=== PATIENT | male | born 1955 | race African-American/Black ===

== ENCOUNTER 2018-12-01 14:01 | Inpatient (IN) | payer BC ==
[~2018-12-01] VITALS: Ht 162.6 cm; Wt 60.3 kg
[2018-12-01 14:01] VITALS: BP 208/135
--- NOTE | 2018-12-01 14:33 | EKG ---
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1955 Requested By: Luisa Matthews Order Number: [id number] MD: Lavon Gil Measurements Intervals Wade Rate: 119 P: 50 NJ: 163 QRS: -29 QRSD: 95 T: 132 QT: 333 QTc: 469 Interpretive Statements Sinus tachycardia LVH with secondary repolarization abnormality Poor R wave progression No previous ECG available for comparison Electronically Signed On 12-01-2018 14:33:15 CDT by Lavon Gil [email or web address] ��������������������������������������������� <ELECTRONICALLY SIGNED> ���������������������������������������� By: Lavon Gil MD, [facility] ��������������������������������������������� 12/01/18 1433 1407 1407 Lavon Gil MD, FACC /EPI
[2018-12-01] MEDS ORDERED: BAYER CHEWABLE81 MG PO (15:24)
[2018-12-01 15:41] LABS: ABSOLUTE NEUTROPHILS 15.3 thou/uL (1.4-8.2); BASOPHILS 0.4 % (0.0-2.0); EOSINOPHILS 0.2 % (0.0-3.0); HEMATOCRIT 42.9 % (42.0-52.0); HEMOGLOBIN 14.7 gm/dL (14.0-18.0); LYMPHOCYTES 5.4 % (24.0-44.0); MCH 32.8 pg (26.0-34.0); MCHC 34.2 g/dL (28.0-37.0); MCV 95.7 fL (80.0-100.0); MONOCYTES 9.1 % (1.0-8.0); PLATELET COUNT 153 thou/uL (150-400); POLYS 84.9 % (36.0-66.0); RBC 4.48 mil/uL (4.50-6.00); RDW 13.5 % (10.5-14.5)
[2018-12-01 15:49] LABS: CALCIUM 8.7 mg/dL (8.5-10.1); CREATININE 1.5 mg/dL (0.7-1.3); POTASSIUM 3.7 mmol/L (3.5-5.1)
[2018-12-01 15:58] LABS: TROPONIN-I 0.17 ng/mL (<0.06)
[2018-12-01 22:02] VITALS: BP 133/95
[2018-12-01 22:48] VITALS: BP 209/87
[2018-12-02] VITALS (7 sets, daily range): BP systolic 123–185; BP diastolic 80–135
[2018-12-02 05:18] LABS: HEMATOCRIT 44.4 % (42.0-52.0); HEMOGLOBIN 15.5 gm/dL (14.0-18.0); MCH 33.7 pg (26.0-34.0); MCV 96.5 fL (80.0-100.0); RBC 4.6 mil/uL (4.50-6.00); RDW 13.7 % (10.5-14.5); WBC 17.4 thou/uL (4.0-11.0)
[2018-12-02 05:38] LABS: CALCIUM 8.8 mg/dL (8.5-10.1); CREATININE 1.6 mg/dL (0.7-1.3); TROPONIN-I 0.22 ng/mL (<0.06)
--- NOTE | 2018-12-02 08:14 | NUR ---
[facility]. [facility] STABLE. BP RUNS EXTREMELY HIGH. ON NITRO DRIP TO HELP WITH BP. COMPLAINS OF SOB WITH LAYING DOWN. LASIX GIVEN/VOIDING ADEQUATELY. ASSESSMENT CHGARTED. NITRO DRIP D/C'ED. CARDIOLOGY WORKING ON BP MEDS AND CHF. PULMONARY ON RESP DISTRESS/SOA. WILL CONTNUE TO MONITOR AND FOLLOW WITH POC
[2018-12-02 16:05] LABS: URINE BILIRUBIN NEGATIVE (Negative); URINE BLOOD NEGATIVE (Negative); URINE CLARITY CLEAR; URINE COLOR YELLOW; URINE GLUCOSE-RANDOM* NEGATIVE (Negative); URINE KETONES NEGATIVE (Negative); URINE LEUKOCYTES NEGATIVE (Negative); URINE NITRITE NEGATIVE (Negative); URINE PROTEIN (DIPSTICK) NEGATIVE (Negative); URINE UROBILINOGEN 0.2 E.U./dl (0.2-1.0)
[2018-12-02 16:19] LABS: PROT/CREAT RATIO 0.8; URINE CREATININE-RANDOM* 21.4 mg/dL; URINE PROTEIN-RANDOM* 17.2 mg/dL (<11.9)
--- NOTE | 2018-12-02 16:57 | NUR ---
ASSESSMENT CHARTED - MEDS PER MAR - GIVEN IV LASIX ORDERED WITH GOOD REPOSNSE. ACCUCHECKS CHARTED - ECHO COMPLETED THIS AM - LOW K+ REPLACED PER PROTOCOL - K+ NOW 3.9. PT UP AD KATHIE IN ROOM - DEION DIET AND FLUIDS. SEEN BY NEPHROLOGY TODAY ORDERED - URINE TO THE LAB ORDERED. NO CO'S AT THE PRESENT TIME.
--- NOTE | 2018-12-02 22:01 | 2DMMODE ---
[facility] [place] [address] 2 D/M-MODE ECHOCARDIOGRAM Name: GEOVANI VALENTINE Room #: 206-P ADM IN M.R.#: [id number] ������������� Admission: 12/01/18 ������������� Attend Phys: Mari Angeles MD Discharge: ��� ������������� ��� Date of : 59 Date of Service: 12/02/182200 �� Report #: [id number] �������� ��������������������������������������������[id number] THIS REPORT FOR: //name// APPROVED REPORT Study performed: 12/02/2018 08:16:41 EXAM: Comprehensive 2D, Doppler, and color-flow Echocardiogram Patient Location: Bedside Room #: 206 Status: on-call BSA: 1.64 BP: 185/135 mmHg Rhythm: NSR Other Information Study Quality: Good Indications CHF, HTN, elevated troponin, pulmonary edema, dyspnea Echo Enhancing Agent Indication: Endocardial border delineation Agent(s) / Amount(s) Used: Optison 2 cc 2D Dimensions RVDd: 31.43 mm IVSd: 17.24 (7-11mm) LVDd: 49.93 mm PWd: 18.80 (7-11mm) LVDs: 43.27 (25-40mm) Left Atrium: 39.64 (27-40mm) IVC: 19.00 mm Volumes Left Atrial Volume (Systole) Single Plane 4CH: 60.10 mL LA ESV Index: 48.00 mL/m2 Aortic Valve AoV Peak Marino.: 1.48 m/s AO Peak Gr.: 9.87 mmHg LVOT Max P.34 mmHg LVOT Max V: 1.16 m/s [facility] [address] [place] [address] 2 D/M-MODE ECHOCARDIOGRAM Name: GEOVANI VALENTINE Room #: 206-P [facility] IN .R.#: [id number] ������������� Admission: 12/01/18 ������������� Attend Phys: Mari Angeles MD Discharge: ��� ������������� ��� Date of : 59 Date of Service: 12/02/18 2201 �� Report #: [id number] �������� ��������������������������������������������[id number] Mitral Valve MV Peak Gr.: 4.97 mmHg MV Mean Gr.: 1.87 mmHg E/A Ratio: 2.0 MV Decel. Time: 110.85 ms MV E Max Marino.: 0.92 m/s MV A Marino.: 0.45 m/s MV Max Marino.: 1.11 m/s MV Mean Marino.: 0.61 m/s MV VTI: 248.05 mm Pulmonary Valve PV Peak Marino.: 0.64 m/s PV Peak Gr.: 1.62 mmHg Tricuspid Valve TR Peak Marino.: 2.91 m/s RAP Estimate: 5.00 mmHg TR Peak Gr.: 33.79 mmHg PA Pressure: 39.00 mmHg Left Ventricle The left ventricle is normal size. Global hypokinesis. Severe concentric left ventricular hypertrophy. Left ventricular ejection fraction is severely decreased. LVEF is 15-20%. This study is not technically sufficient to allow evaluation of the LV diastolic function. Right Ventricle Right ventricle is mildly dilated. The right ventricular systolic function is normal. Atria Left atrium is moderately dilated. Left atrial volume = 48 ml/m2. Right atrium is moderately dilated. Aortic Valve The Aortic valve is sclerotic. Moderate aortic regurgitation. There is no aortic valvular stenosis. Mitral Valve Mitral valve leaflets are mildly thickened. Trace mitral regurgitation. No evidence of mitral valve stenosis (mean gradient 1.8 mmHg). Tricuspid Valve The tricuspid valve appears grossly normal in structure. Unusual eccentric mild tricuspid regurgitation. Estimated PAP pressure of 39 mmHg. [facility] [address] [place] [address] 2 D/M-MODE ECHOCARDIOGRAM Name: GEOVANI VALENTINE Room #: [facility] IN .R.#: [id number] ������������� Admission: 12/01/18 ������������� Attend Phys: Mari Angeles MD Discharge: ��� ������������� ��� Date of : 59 Date of Service: 12/02/18 2201 �� Report #: [id number] �������� ��������������������������������������������[id number] Pulmonic Valve The pulmonary valve is normal in structure. Trace pulmonic regurgitation. Great Vessels The aortic root is normal in size. The ascending aorta is normal in size. IVC is normal in size and collapses >50% with inspiration. Pericardium There is no pericardial effusion. <Conclusion> The left ventricle is normal size. Severe concentric left ventricular hypertrophy. LVEF is 15-20%. Global hypokinesis. This study is not technically sufficient to allow evaluation of the LV diastolic function. Right ventricle is mildly dilated. Left atrium is moderately dilated. Left atrial volume = 48 ml/m2. Right atrium is moderately dilated. Moderate aortic regurgitation. Mitral valve leaflets are mildly thickened. Trace mitral regurgitation. Unusual eccentric mild tricuspid regurgitation. Estimated PAP pressure of 39 mmHg. The aortic root is normal in size. There is no pericardial effusion. ��������������������������������������������� <ELECTRONICALLY SIGNED> ���������������������������������������� By: Alberto Sanches MD, FACC ��������������������������������������������� 12/02/182200 00 00 Alberto Sanches MD, FACC /INF
[2018-12-03] VITALS (7 sets, daily range): BP systolic 129–180; BP diastolic 84–132
[2018-12-03 05:53] LABS: ALBUMIN 3.1 g/dL (3.4-5.0); CALCIUM 8.8 mg/dL (8.5-10.1); CREATININE 1.6 mg/dL (0.7-1.3); PHOSPHORUS 3.3 mg/dL (2.5-4.9); POTASSIUM 3.5 mmol/L (3.5-5.1)
--- NOTE | 2018-12-03 06:52 | NUR ---
[facility] 1900. PT STABLE. DENIES ANY LINN OR HEADACHES. BP STILL UNSTABLE. UP AD KATHIE. ASSESSMETN CHARTED. PROGRESSING MODERTELY TO PLAN OF CARE. PLAN IS TO CONTINUE WITH DIURETICS AND BP MEDS UNTIL STABILIZED. WILL CONTINUE TO MONITOR AND FOLLOW WITH POC
--- NOTE | 2018-12-03 08:12 | NUR ---
INSTRUCT PT TO LIMIT PO LIQUID INTAKE AND NEED FOR SCDS BILAT. WILL CONTINUE TO ASSESS.
[2018-12-03 09:28] LABS: CHOLESTEROL 195 mg/dL (<200); HDL CHOLESTEROL 52 mg/dL (>40); LDL CHOLESTEROL 121 mg/dL (<100); TC:HDL 3.8 Ratio (Not establshd); TRIGLYCERIDE 113 mg/dL (<150); VLDL 23 mg/dL (<40)
--- NOTE | 2018-12-03 11:24 | HC ---
[facility] [place] [address] CONSULTATION Name: GEOVANI VALENTINE Room #: 206-P ADM IN M.R.#: [id number] Admission: 12/01/18 ������������������ Attend Phys: Mari Angeles MD Discharge: ������������������ Date of : 59 Report #: [id number] THIS REPORT FOR: //name// CC: SKIP Angeles DATE OF SERVICE: 12/02/2018 NEPHROLOGY CONSULTATION REASON FOR CONSULTATION: Elevated creatinine level. HISTORY OF PRESENT ILLNESS: This is a 63-year-old male who presented to the Emergency Room with a couple of weeks history of increasing dyspnea, orthopnea, and a few episodes of PND. He has had very little medical care over the years. He says he went [place] years ago with essentially no medical care that made the better part of 35 years or more. He was seen at [facility] 2 years ago when he had an inguinal herniorrhaphy performed. At that time, he was diagnosed with hypertension. He was put on a combination of medications including lisinopril. The lisinopril was eventually stopped as he had an episode of angioedema. He was kept on other medications, but never really followed up. A year ago, he basically stopped all his medications and he has had no medications for the better part of the past year. On presentation to the Emergency Room last night, his blood pressure was 208/135. Heart rate was elevated in the 120s. He was afebrile. He denies chest pain or palpitations. He mainly has had the dyspnea, the orthopnea and the PND. He has not had much in the way of lower extremity edema. He also presented with some leukocytosis with a white count of 18 on presentation. With that he had 85 neutrophils, 5 lymphs, 9 monocytes. We are asked to see him for renal-related causes. On presentation, his creatinine level was 1.5. It is up to 1.6 today. His initial potassium was 3.7 and bicarbonate was 24. In talking to the patient, he knows of no prior renal-related problems. He has the hypertension. He is unaware of diabetes. No history of urinary tract infections, nephrolithiasis, hematuria, proteinuria. He has no urinary symptoms. Again, he has had no edema. He knows that he had blood work drawn and evaluation done a couple of years ago when he had his herniorrhaphy, but does not remember being told about anything at that time. Again, he has had very little in the way of medical care. MEDICATIONS PRIOR TO ADMISSION: Include aspirin 81 mg daily. This is the only medication that he takes. PAST MEDICAL HISTORY: Father in his 80s. He had hypertension and was on dialysis due to end-stage renal disease, just at the end of his life, but that was less than a year that he was on dialysis before he . Mother is [address] [address] CONSULTATION Name: GEOVANI VALENTINE Room #: 206-P [facility] IN M.R.#: [id number] Admission: 12/01/18 ������������������ Attend Phys: Mari Angeles MD Discharge: ������������������ Date of : 59 Report #: [id number] and also has some hypertension, but he is unaware of any renal disease in his mother. He is one of 7 siblings. One sister of cardiac complications within the past year. No other renal disease in the family of which he is aware. SOCIAL HISTORY: The patient is single, although there is a female partner who accompanies him here in the hospital. He has worked many different jobs over the years. He said he never received any medical care. REVIEW OF SYSTEMS: Has noticed increased fatigue. Denies fevers, chills or sweats. No nausea or vomiting. Has the orthopnea and PND as noted above. Reports no difficulty voiding urine. No nausea, vomiting, or change in bowel habits. No edema. No rashes or arthralgias. Unaware of other changes that he just does not feel his normal self. PHYSICAL EXAMINATION: GENERAL: A 63-year-old male, awake, alert, and conversant, no distress at this time. VITAL SIGNS: Most recent blood pressure 185/135, heart rate 78, temperature 97.8, oxygen saturation 95%. HEENT: Shows pupils are equal and reactive. Sclerae nonicteric. Oral mucosa is moist, no lesions. NECK: Supple without adenopathy, thyromegaly, JVD or bruit. BACK: Shows no CVA tenderness. CHEST: Fairly clear bilaterally. I hear no rales, rhonchi or wheezes. CARDIOVASCULAR: Heart has a regular rate and rhythm with occasional S4 gallop. No murmur. ABDOMEN: Has active bowel sounds, is soft and nontender. No organomegaly or masses are palpable. EXTREMITIES: Show no peripheral edema. He has 2+ peripheral pulses. LABORATORY DATA: I reviewed his chest x-ray which shows some diffuse interstitial markings. I reviewed his CT angio, which was done last night. There were no changes consistent with pulmonary emboli. He did have a few segmental areas of patchy infiltrates. LABORATORY DATA: From presentation, sodium 134, potassium 3.7, chloride 99, bicarbonate 24, BUN 26, creatinine 1.5. It is 1.6 this morning. Glucose is 126, calcium 8.7. Troponin is 0.17, which justin to 0.22. White count 18.0, hemoglobin 14.7, hematocrit 42.9, platelets 153,000. Differential is as noted above. No urinalysis available. ASSESSMENT: 1. Elevated creatinine. We do not have much to go on at this point. He has very minimal medical history, because of lack of going for medical care. I suspect he has actually had hypertension for a very long period of time and the [facility] [address] [place] [address] CONSULTATION Name: GEOVANI VALENTINE Room #: 206-P ADM IN ..#: [id number] Admission: 12/01/18 ������������������ Attend Phys: Mari Angeles MD Discharge: ������������������ Date of : 59 Report #: [id number] most likely scenario would be that of hypertensive nephrosclerosis causing chronic kidney disease. We certainly need to look for other causes as though. There is no urinalysis yet. We will review that. We will also check for proteinuria and quantify the amount. In the meantime, he needs a better blood pressure control. As that happens, I expect his creatinine level will rise somewhat. We need to get a renal ultrasound to assess renal size and anatomy. If we see any evidence of inflammation, increasing proteinuria, we will expand the evaluation to include looking for causes of gluomerolar disease. 2. Hypertension, poor control. He has been started on carvedilol, amlodipine, some IV furosemide and then when his potassium dropped this morning, some spironolactone. All of those are fine for now. I think long-term thiazide diuretic. We will do a good job and helping control his pressure because he obviously will need to be on long-term IV furosemide. Sodium restriction will be important. Again, we will see how he responds to initiating these medicines. 3. Congestive heart failure by symptoms. We will see what his echo shows. 4. Infiltrates with adenopathy on his CT scan of his chest. Workup to be started. PLAN: 1. Continue current antihypertensives. 2. Check urinalysis as well as urine protein creatinine ratio. 3. Renal ultrasound. 4. We will follow up on the results of his echocardiogram. 5. Repeat labs in the morning. 6. We will continue to work with him as we get more data back in directing this evaluation and treatment. ��������������������������������������������� <ELECTRONICALLY SIGNED> ���������������������������������������� By: Jeromy Mcgregor MD ��������������������������������������������� 12/03/18 1124 1353 2231 Jeromy Mcgregor MD /nt
--- NOTE | 2018-12-03 15:16 | EKG ---
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1955 Requested By: Luisa Matthews Order Number: [id number] MD: Lavon Gil Measurements Intervals [place] Rate: 115 P: 39 NH: 186 QRS: -36 QRSD: 90 T: 124 QT: 332 QTc: 460 Interpretive Statements Sinus tachycardia Atrial premature complex Left atrial enlargement LVH with secondary repolarization abnormality Anterior infarct, old Compared to ECG 12/01/2018 14:07:33 Atrial premature complex(es) now present Electronically Signed On 12-03-2018 15:15:49 CDT by Lavon Gil [email or web address] ��������������������������������������������� <ELECTRONICALLY SIGNED> ���������������������������������������� By: Lavon Gil MD, [facility] ��������������������������������������������� 12/03/18 1515 1616 1616 Lavon Gil MD, [facility] /EPI
--- NOTE | 2018-12-03 16:35 | HC ---
[facility] [place] [address] CONSULTATION Name: GEOVANI VALENTINE Room #: [facility] ADM IN M.R.#: [id number] Admission: 12/01/18 ������������������ Attend Phys: Mari Angeles MD Discharge: ������������������ Date of : 59 Report #: [id number] THIS REPORT FOR: //name// CC: [employer] Mari Angeles PULMONARY CONSULTATION REFERRING PHYSICIAN: Dr. Angeles. REASON FOR REFERRAL: Infiltrates. HISTORY OF PRESENT ILLNESS: The patient is a 63-year-old male who presents to the ED with progressive dyspnea, cough and chest pain. CT chest angiogram showed infiltrates. A pulmonary consultation was requested. For the past few weeks, the patient had noticed progressive dyspnea on exertion. For the past week, he has developed a nonproductive cough. He has also developed frequent nocturnal awakenings due to dyspnea. He also complained of left-sided chest pain for about a week or so. The patient states that he smoked cigars for about 20 years. He smokes less than 5 cigars per day. He has never been diagnosed with chronic lung disease. He has had hypertension for several years. Over a year ago, he stopped taking the antihypertensive medication due to leg cramps. About a year or so ago, he was also seen in the ER due to what sounds like marked perioral upper airway edema related to antihypertensive medication. In the ER, the patient's blood pressure was found to be markedly elevated at 208/135 mmHg. Chest x-ray was abnormal showing infiltrates bilaterally. CT chest angiogram was performed showing no evidence of pulmonary embolus. It did show areas of patchy interstitial and airspace infiltrates involving both upper lobes. There is some suggestion of Violeta B lines. Mild AP window adenopathy is noted. Mild bronchiectasis is also seen bilaterally. 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 He does not remember any particular respiratory symptoms while working as a painter ski edge. Otherwise, denies any night sweats, fever or chills. Denies any recent hemoptysis. Denies any recent weight loss. The patient denies any family history of bronchogenic carcinoma. [facility] [address] [place] [address] CONSULTATION Name: GEOVANI VALENTINE Room #: 206-[facility] IN .R.#: [id number] Admission: 12/01/18 ������������������ Attend Phys: Mari Angeles MD Discharge: ������������������ Date of : 59 Report #: [id number] PAST MEDICAL HISTORY: As mentioned above. Long history of hypertension, tobacco abuse primarily cigars. ALLERGIES: LISINOPRIL causing facial edema. HOME MEDICATIONS: Reviewed. He only takes aspirin. FAMILY HISTORY: Notable for hypertension, heart disease in her father. Mother from following complications associated with surgery. He has a sister that has a pacemaker placement. SOCIAL HISTORY: Born and raised in [place], [place]. He is . 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 He drinks socially. He smokes several cigarettes or cigars per day for the last 20 years. REVIEW OF SYSTEMS: As mentioned above, otherwise 10-point system review negative. PHYSICAL EXAMINATION: GENERAL: He is awake, alert, in no apparent distress. VITAL SIGNS: Temperature is 97.8 degrees Fahrenheit, pulse is 114, respiratory rate is 20, blood pressure was 180/135 mmHg, currently is 120/95 mmHg, saturation 94%. HEENT: Normocephalic, atraumatic. NECK: Supple, without any lymphadenopathy or thyromegaly. CHEST: Breath sounds are good with few scattered crackles in the upper lobes. No wheezes. CARDIOVASCULAR: Normal S1, S2. No murmurs or gallop. There is no JVD. There is no carotid bruit. Pulses are 2+/4+ bilaterally. ABDOMEN: Soft, nontender, no organomegaly or masses felt. GENITOURINARY: Deferred. RECTAL: Deferred. EXTREMITIES: There is no edema, cyanosis or clubbing. LABORATORY DATA: Chest x-ray, CT chest angiogram as mentioned above showing patchy bilateral interstitial and airspace infiltrates, mild bronchiectasis. Questionable mediastinal adenopathy involving the AP window. Electrolytes, creatinine is 1.5. Sodium 134, potassium 3.0, chloride 99, CO2 24, BUN is 26. WBC is 18,000, hemoglobin is 14.7, platelets are normal. Differential is unremarkable. Troponin 0.2. EKG shows sinus tachycardia, otherwise no ischemic changes, left ventricular hypertrophy is noted, old anterior infarct is noted. Echocardiogram performed earlier today reveals severe cardiomyopathy with ejection fraction approximately 20%, pulmonary artery pressure around 45. Full report pending. IMPRESSION: [facility] [address] [place] [address] CONSULTATION Name: GEOVANI VALENTINE Room #: 206-P ADM IN M.R.#: [id number] Admission: 12/01/18 ������������������ Attend Phys: Mari Angeles MD Discharge: ������������������ Date of : 59 Report #: [id number] 1. Bilateral patchy interstitial and ground glass infiltrates in this 63-year-old male. He was found to be in hypertensive emergency, echo shows severe cardiomyopathy. Although the infiltrates suggests possible infectious inflammatory process, given presentation and laboratory data, this may represent atypical pulmonary edema. As mentioned, he may have underlying interstitial process such as interstitial lung disease, infectious processe including atypical infection is felt to be less likely given absence of symptoms and given the absence of fever and productive cough. 2. Hypertensive urgency. 3. Severe cardiomyopathy, ejection fraction 20%. 4. Elevated pulmonary artery systolic pressure around 45 mmHg. 5. Elevated troponin. 6. Acute on chronic heart failure, systolic. 7. Acute kidney injury/chronic kidney disease, likely related to poorly controlled hypertension. 8. Leukocytosis, may be reactive, we will follow closely. Antibiotic has been started. 9. Tobacco abuse. RECOMMENDATION: As mentioned above, agree with current plans including diuresis and further cardiac evaluation. I would recommend followup imaging studies regarding infiltrates following treatment for heart failure. If infiltrates persist, I will proceed with further workup including diagnostic bronchoscopy, bronchial lavage, possible transbronchial biopsies. Strongly recommend tobacco cessation. The patient will benefit from outpatient followup with pulmonary functions. Thank you for this consultation. ��������������������������������������������� <ELECTRONICALLY SIGNED> ���������������������������������������� By: Thomas Comer MD ��������������������������������������������� 12/03/18 1635 1412 [id number] Thomas Comer MD /nt
--- NOTE | 2018-12-03 17:26 | NUR ---
PT STAYNG WITHIN FLUID RESTRICTION. PT UP TO SHOWER THIS SHIFT.
[2018-12-04 04:02] LABS: ALBUMIN 2.9 g/dL (3.4-5.0); CALCIUM 8.8 mg/dL (8.5-10.1); CREATININE 1.7 mg/dL (0.7-1.3); PHOSPHORUS 4.2 mg/dL (2.5-4.9); POTASSIUM 3.6 mmol/L (3.5-5.1)
[2018-12-04 04:18] LABS: HEMATOCRIT 43.9 % (42.0-52.0); HEMOGLOBIN 15.1 gm/dL (14.0-18.0); MCH 33.3 pg (26.0-34.0); MCHC 34.5 g/dL (28.0-37.0); MCV 96.6 fL (80.0-100.0); RBC 4.54 mil/uL (4.50-6.00); RDW 13.4 % (10.5-14.5)
[2018-12-04 04:30] VITALS: BP 148/105
--- NOTE | 2018-12-04 05:28 | NUR ---
PT RESTING IN BED, APPEARED TO BE SLEEPING WHEN PT HAD 23 BEAT VTACH AROUND 0517. I WOKE PT UP AND HE SAID HE FELT FINE, NO C/O OF CP. PT REMAINS ON RA. HAS BEEN NPO SINCE MIDNIGHT FOR HEART CATH TODAY. REMAINS SR/ST ON MONITOR.
[2018-12-04 08:21] VITALS: BP 154/112
[2018-12-04 12:10] LABS: KAPPA FREE LIGHT CHAINS 32.3 mg/L (3.3-19.4); KAPPA/LAMBDA RATIO 1.19 (0.26-1.65); LAMBDA FREE LIGHT CHAINS 27.1 mg/L (5.7-26.3)
--- NOTE | 2018-12-04 16:32 | NUR ---
ASSESSMENT CHARTED - MEDS PER JUN - DEION DIET AND FLUIDS. NO CO'S OF PAIN OF NAUSEA. 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 POST CATH VSS AND GROIN SITE STABLE - PT NOW UP IN ROOM WITH STABLE GROIN SITE - NO BLEEDING HEAMATOMMA. IV FLUIDS CONTINE TO RUN RODERED MAY BE D/C'S AT 1730. FRIEND AT THE [facility]. NO CO'S AT THE PRESENT TIME.
[2018-12-04 17:10] LABS: ANA INTERPRETATION Negative (())
--- NOTE | 2018-12-04 17:17 | CATHLAB ---
[facility] [address] [place] [address] INVASIVE PROCEDURE REPORT Name: GEOVANI VALENTINE Room #: 206-P ADM IN M.R.#: [id number] ������������� Admission: 12/01/18 ������������� Attend Phys: Mari Angeles MD Discharge: ��� ������������� ��� Date of : 59 Date of Service: 12/04/18 1717 �� Report #: [id number] �������� ��������������������������������������������[id number] THIS REPORT FOR: //name// APPROVED REPORT Study performed: 12/04/2018 07:55:16 Patient Details Patient Status: In-Patient Room #: The patient is a 63 year-old male Event Personnel Alberto Sanches Heel Attacher, Jean Paul Cummings RN RN, Ariane Richards Monitor, Vipul Costa RTR Scrub, Edward Fitch RTR Scrub Procedures Performed Art Access - R femoral artery* Long Access - R femoral vein [id number] Initial Mod Sed Same Phys/QHP Gr5y [id number] Right and Left Heart Cath w/or w/o Coronarie [id number] [facility] Aortogram Abdominal Peripheral Angio [id number] Hemostasis w/ Mynx Indication Chest pain Procedure Narrative The patient was brought urgently to the Cardiac Catheterization Laboratory and was prepped and draped in a sterile manner. The Right Groin^ was infiltrated with 1% Lidocaine subcutaneous anesthesia. A Right Heart Catheterization was performed with a 7 Fr. Fulton-Bettie catheter and pressure were recorded. Cardiac outputs were obtained by the Thermal Dilution method. A PINNACLE 6FR Sheath #[id number] sheath was inserted into the RFA^. Coronary angiography was performed using coronary diagnostic catheters. The right coronary system was accessed and visualized with a JR 4 catheter. The left coronary system was accessed and visualized with a JL 4 catheter. The left ventricle was accessed and visualized with a Pigtail catheter. Left ventriculogram was performed in BURCIAGA projection. An aortogram of the descending aorta was performed. Hemostasis was obtained with manual pressure following sheath removal without any complications. The patient tolerated the procedure well and there were no complications associated with the procedure. There was no hematoma. Intraoperative Conscious Sedation Sedation start time: 08:21 Case end Time: [facility] [place] [address] INVASIVE PROCEDURE REPORT Name: VALENTINEGEOVANI Room #: [facility] IN ..#: [id number] ������������� Admission: 12/01/18 ������������� Attend Phys: Mari Angeles MD Discharge: ��� ������������� ��� Date of : 59 Date of Service: 12/04/18 1717 �� Report #: [id number] �������� ��������������������������������������������[id number] 08:50 Fentanyl 100 mcg Versed 2 mg Fluoro Time: 2611.00 minutes Dose: DAP 251.00 cGycm2 251 mGy Contrast Type and Amount: Visipaque 55 ml Hemodynamics The right atrial mean pressure is 6 mmHg. The right ventricular pressure is 36/-1 mmHg. The pulmonary artery pressure is 34/7 mmHg with a mean of 18 mmHg. The mean pulmonary capillary wedge pressure is 11 mmHg. The aortic pressure is 128/84 mmHg with a mean of 99 mmHg. The left ventricular pressure is 130/3 mmHg with a mean of mmHg. The left ventricular end diastolic pressure is 15 mmHg. The cardiac output using thermo method is 2.87 L/min. The cardiac index using thermo method is 1.70 L/min/m2. Conclusion #1 successful right heart catheterization with cardiac output by thermodilution #2 mildly dilated LV with severe global LV dysfunction EF 15-20% range #3 LAD which mildly disease extensive the apex. 30-40% proximal lesion. 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 #6 abdominal aortogram is tortuous bilateral renal arteries are widely patent. No aneurysm Recommendations plan: Aggressive risk factor modification. Patient has severe LV dysfunction presume we based on hypertensive cardiomyopathy. Limited contrast was utilized 55 mL with fluid hydration. Right heart catheterization also reveals patient to be currently normovolemic. Transfer back to CCU continue aggressive hypertensive therapy. Further nephrology evaluation. Based on above #1 current diuretics. Or low-dose diuretic at discharge. ��������������������������������������������� <ELECTRONICALLY SIGNED> ���������������������������������������� By: Alberto Sanches MD, FACC ��������������������������������������������� 12/04/181716 16 16 Alberto Sanches MD, FACC /INF
[2018-12-04 20:06] VITALS: BP 140/90
[2018-12-05 00:05] LABS: GLYCOHEMOGLOBIN (HGB A1C) 5.3 % (4.8-5.6)
[2018-12-05 04:20] VITALS: BP 171/119
[2018-12-05 05:55] LABS: ALBUMIN 2.9 g/dL (3.4-5.0); CALCIUM 8.8 mg/dL (8.5-10.1); CREATININE 1.8 mg/dL (0.7-1.3); PHOSPHORUS 4.2 mg/dL (2.5-4.9)
--- NOTE | 2018-12-05 06:46 | NUR ---
PT RESTING ON AND OFF THRU THE NOC, NO C/O PAIN, VSS EXCEPT FOR ELEVATED BP'S, RIGHT GROIN REMAINS CDI, ON RA WITH NPC, VOIDING PER URINAL, WILL CON'T TO MONITOR PER PPOC.
[2018-12-05 07:38] VITALS: BP 162/102
[2018-12-05] MEDS ORDERED: IMDUR 60 MG TAB60 M1 PO (08:07)
[2018-12-05] MEDS ORDERED: HYDRALAZINE 10M10 MG PO (08:07)
[2018-12-05] MEDS ORDERED: LIPITOR40 MG PO (08:07)
[2018-12-05] MEDS ORDERED: CARVEDILOL25 MG PO (08:07)
[2018-12-05] MEDS ORDERED: COZAAR 50 MG TA50 M1 PO (08:08)
[2018-12-05] MEDS ORDERED: NORVASC5 MG PO (08:08)
[2018-12-05] MEDS ORDERED: ASA5UEC PO (08:10)
[2018-12-05] MEDS ORDERED: SPIRONOLACTONE25 M1 PO ×2 (08:10→09:08)
[2018-12-05] MEDS ORDERED: MUCINEX600 MG PO (08:13)
[2018-12-05] MEDS ORDERED: AZITHROMYCIN 2250 MG PO (08:13)
[2018-12-05] MEDS ORDERED: KEFLEX500 M1 PO (08:13)
[2018-12-05] MEDS ORDERED: NICOTINE TRANSD21 M1 TRANSDERM (08:48)
[2018-12-05] MEDS ORDERED: PACERONE 200 M200 M1 PO (09:08)
[2018-12-05] MEDS ORDERED: NORVASC10 MG PO (09:08)
[2018-12-05] MEDS ORDERED: CARDURA4 MG PO (09:08)
[2018-12-05 10:08] VITALS: BP 128/84
[2018-12-05 10:24] VITALS: BP 128/84
--- NOTE | 2018-12-05 12:02 | NUR ---
ASSESSMENT CHARTED. PT ALERT AND ORIENTED. SCHEDULED BP MED GIVEN ORDERED. SEEN BY DR. PRICE, DR. REGALADO, AND DR WILSON. ORDERS GIVE TO DISCHARGE PT TO HOME. DISCHARGE INSTRUCTIONS GIVEN TO PT. PT VERBERLIZE UNDERSTANDING. PT LEFT THE FACILITY ACCOMPANIED BY THE FRIEND.
== END 2018-12-05 12:00 | disposition home or self-care (01) | DRG 286 ==
LOC: ER 14:01 → EROBS 18:46 → 2N 18:46 → ENTRNSPT 12-05 11:47 → EDTRNSPTSTS 12-05 11:51 → 2N 12-05 12:00
PROVIDERS: Emergency Medicine; Internal Medicine Nephrology; Nurse Practitioner Adult Health; ADMIT Internal Medicine
PROC: 4A023N8 Measurement of Cardiac Sampling and Pressure, Bilateral, Percutaneous Approach (ICD-10-PCS; principal; 2018-12-04)
PROC: B4101ZZ Fluoroscopy of Abdominal Aorta using Low Osmolar Contrast (ICD-10-PCS; principal; 2018-12-04)
PROC: B2111ZZ Fluoroscopy of Multiple Coronary Arteries using Low Osmolar Contrast (ICD-10-PCS; principal; 2018-12-04)
PROC: B4181ZZ Fluoroscopy of Bilateral Renal Arteries using Low Osmolar Contrast (ICD-10-PCS; principal; 2018-12-04)
DX: I16.1 Hypertensive emergency (principal); I50.23 Acute on chronic systolic (congestive) heart failure; N17.9 Acute kidney failure, unspecified; I42.9 Cardiomyopathy, unspecified; I47.2 Ventricular tachycardia; I13.0 Hypertensive heart and chronic kidney disease with heart failure and stage 1 through stage 4 chronic kidney disease, or unspecified chronic kidney disease; N18.9 Chronic kidney disease, unspecified; R59.0 Localized enlarged lymph nodes; I27.20 Pulmonary hypertension, unspecified; F17.290 Nicotine dependence, other tobacco product, uncomplicated; Z71.6 Tobacco abuse counseling; Z91.14 Patient's other noncompliance with medication regimen; Z86.711 Personal history of pulmonary embolism; Z79.82 Long term (current) use of aspirin; Z88.8 Allergy status to other drugs, medicaments and biological substances; Z82.49 Family history of ischemic heart disease and other diseases of the circulatory system
CPT/HCPCS: 10081

== ENCOUNTER → 2019-03-13 | Outpatient (CLI) | payer BC ==
[~2019-03-13] MED LIST: ASA5UEC PO; AZITHROMYCIN 2250 MG PO; BAYER CHEWABLE81 MG PO; CARDURA4 MG PO; CARVEDILOL25 MG PO; COZAAR 50 MG TA50 M1 PO; HYDRALAZINE 10M10 MG PO; IMDUR 60 MG TAB60 M1 PO; KEFLEX500 M1 PO; LIPITOR40 MG PO; MUCINEX600 MG PO; NICOTINE TRANSD21 M1 TRANSDERM; NORVASC10 MG PO; NORVASC5 MG PO; PACERONE 200 M200 M1 PO; SPIRONOLACTONE25 M1 PO
== END ==
LOC: RAD 13:27
DX: R91.8 Other nonspecific abnormal finding of lung field (principal); I77.819 Aortic ectasia, unspecified site